=== PATIENT | male | born 1980 | race American Indian/Alaskan Native ===

== ENCOUNTER 2017-04-29 14:45 | Emergency (ER) | payer SELFPAY ==
[2017-04-29 14:55] VITALS: BP 100/61
--- NOTE | 2017-04-29 16:01 | Emergency Department Report ---
[facility] Chief Complaint: Eye Problems Stated Complaint: LEFT EYE RED Time Seen by Provider: 04/29/17 15:52 Duration: 5 Days Side: Bilateral Symptoms: Yes Eye Itching, Yes Eye Redness, Yes Purulent Drainage, No Eye Pain, No Mucous Drainage, No Blurred Vision, No Preceding URI, No H/O Allergic Rhinitis, No Contact Lens Use, No Trauma, No Fever, No Headache Other History: 36-year-old male past medical history none presents with complaint of 5 days of eye irritation redness and discharge. Patient is awake alert and oriented 3 fully lucid denies nausea vomiting fever or chills denies photophobia. Complaining of slightly yellowish disc charge from both eyes began in the left eye and spread to right eye. Denies any trauma denies any contact lens use denies any contact with anyone with pink eye recently. Denies any current blurry vision. States he has been using [id number] eyedrops to help with irritation ED Review of Systems ROS: Stated complaint: LEFT EYE RED Other details as noted in HPI Constitutional: denies: chills, fever Eyes: eye pain, eye discharge. denies: vision change ENT: denies: ear pain, throat pain Respiratory: denies: cough, shortness of breath, wheezing Cardiovascular: denies: chest pain, palpitations Endocrine: no symptoms reported Gastrointestinal: denies: abdominal pain, nausea, diarrhea Genitourinary: denies: urgency, dysuria Musculoskeletal: denies: back pain, joint swelling, arthralgia Skin: denies: rash, lesions Neurological: denies: headache, weakness, paresthesias Psychiatric: denies: anxiety, depression Hematological/Lymphatic: denies: easy bleeding, easy bruising ED Past Medical Hx - Past Medical History Previous Medical History?: No - Surgical History Past Surgical History?: No - Medications Home Medications: Home Medications Medication Instructions Recorded Confirmed Last Taken Type Ibuprofen [Motrin] 600 mg PO Q8H PRN #25 tablet 04/29/17 Unknown Rx Tobramycin 0.3% [Tobrex] 1 drop OU Q4H #1 bottle 04/29/17 Unknown Rx [facility] Exam - Exam General: Vital signs noted. No distress. Alert and acting appropriately. Eye Exam: Both Chemosis, Both EOMI, Neither Injection, Neither Abnormal Pupil, Neither Eye Foreign Body, Neither Lid Foreign Body, Neither Mucous Discharge, Neither Purulent Discharge, Neither Fluorescein Uptake, Neither Fluorescein Uptake (slit lamp), Neither Cell/Flare (slit lamp), Neither Corneal Edema, Neither Photophobia HEENT: No Nasal Congestion, No Pharyngeal Erythema Remainder of HEENT: Normal Lungs: Yes Clear Lung Sounds, Yes Good Air Exchange, No Wheezes, No Stridor, No Cough, No Nasal Flaring, No Retractions, No Use of Accessory Muscles ED Course Vital Signs 04/29/17 14:53 Temperature 98.3 F Pulse Rate 92 H Respiratory 18 Rate Blood Pressure 100/61 [Left] O2 Sat by Pulse 100 Oximetry ED Medical Decision Making - Medical Decision Making A/P: Bilateral conjunctivitis 1-Motrin when necessary, tobramycin drops 2-vision 20/20 bilaterally 3-follow up with ophthalmology Critical care attestation.: If time is entered above; I have spent that time in minutes in the direct care of this critically ill patient, excluding procedure time. ED Disposition Clinical Impression: Conjunctivitis Qualifiers: Conjunctivitis type: acute Acute conjunctivitis type: bacterial Laterality: bilateral Qualified Code(s): H10.33 - Unspecified acute conjunctivitis, bilateral Disposition: - TO HOME OR SELFCARE Is pt being admited?: No Does the pt Need Aspirin: No Condition: Stable Instructions: Conjunctivitis (ED) Prescriptions: Ibuprofen [Motrin] 600 mg PO Q8H PRN #25 tablet PRN Reason: Pain Tobramycin 0.3% [Tobrex] 1 drop OU Q4H #1 bottle Referrals: CAESAR DARDEN MD [Staff Physician] - 3-5 Days [facility] [Outside] - 3-5 Days Forms: Work/School Release Form(ED) Time of Disposition: 16:00
== END 2017-04-29 16:23 | disposition home or self-care (01) ==
LOC: ED 14:45
DX: H10.9 Unspecified conjunctivitis (principal)
CPT/HCPCS: 99282